=== PATIENT | female | born 1960 | race Caucasian/White ===

== ENCOUNTER → 2018-04-26 | Day surgery (SDC) | payer OTHER ==
[~2018-04-26] MED LIST: LIDOCAINE 1%/EPINEPHRINE INJ 20 ML VIAL ONE; LIDOCAINE 2% INJ (20 MG/ML) 20 ML MDV ONE
--- NOTE | 2018-04-27 17:03 | WOMENS IMAGING REPORT ---
EXAM DESCRIPTION: STEREO BREAST BX; RIGHT DIG DX MAMMO NO CHG COMPLETED DATE/TIME: 04/26/2018 12:01 pm; 04/26/2018 10:24 am REASON FOR STUDY: MICROCALCS (R92.0); RIGHT BREAST POST STEREO BX R92.0 MAMMOGRAPHIC MICROCALCIFICA TION FOUND ON DX IMAGING OF COMPARISON: None. TECHNIQUE: Vacuum-assisted stereotactic-guided biopsy of the lesion in the right breast. Serial prog ress stereotactic and single digital images acquired. PROCEDURE: The procedure was discussed with the patient, including possible complications such as bleeding, infection, nondiagnostic sample or possible findings such as atypical ductal hyperplasia wh ich would require additional surgery. Possible clip placement was explained. The patient agreed t o the procedure. The patient was placed prone on the stereotactic table. The lesion in the breast was localized ster eotactically. The skin of the breast was prepped in sterile fashion. Superficial and deep local an esthesia was provided. A small incision was made in the skin and the biopsy probe was advanced to t he target. Using the vacuum-assisted core biopsy device, multiple core specimens were obtained. Continuous low dose infusion of local anesthesia was used during the procedure. A specimen radiograph was obtained. The radiograph demonstrated calcifications of concern in the bio psy tissue. Using myyfdpuz-wu-rzojbwks technique a starch joel ultra core clip was deployed at the biopsy site. Mammographic image confirmed presence of the clip. The probe was then removed and hemostasis obt ained with manual compression. A compression bandage was applied. Postoperative instructions were explained to the patient. POST-PROCEDURE TWO VIEW DIGITAL MAMMOGRAM: An additional two view mammogram was recorded in the [facility] mammographic suite. Marker clip is present at the biopsy site. LIMITATIONS: None. 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 POST PROCEDURE MAMMOGRAMS FOR MARKER PLACEMENT: Yes IMPRESSION: SUCCESSFUL STEREOTACTIC-GUIDED BIOPSY OF THE LESION IN THE RIGHT BREAST. BIOPSY RESULT S ARE CONCORDANT WITH IMAGING FINDINGS. BI-RADS 6 Known biopsy-proven malignancy. Appropriate actio n should be taken. FOLLOW-UP: Patient has a follow-up with Dr Fernandez NOTIFICATION: These results were discussed directly with the patient, 1645 hours 04/27/2018. She unde rstands that this is a malignant diagnosis, which requires further treatment. BI-RADS 6 Known biopsy-proven malignancy. Appropriate action should be taken. COMMENT: Patient medication list reviewed: Yes- Quality ID# [id number]:Eligible professional attests to doc umenting in the medical record they obtained, updated, or reviewed the patient's current medications. TECHNICAL DOCUMENTATION: JOB ID: [id number] [employer]- All Rights Reserved Reading location - IP/workstation name: [email or web address]
== END ==
LOC: RAD 08:30 → EDSTATUS 09:00
PROVIDERS: ATTEND Surgery
DX: D05.11 Intraductal carcinoma in situ of right breast (principal); R92.0 Mammographic microcalcification found on diagnostic imaging of breast
CPT/HCPCS: 88305 ×2; 19081; J3490 ×2

== ENCOUNTER 2018-05-04 08:46 | Day surgery (SDC) | payer OTHER ==
[~2018-05-04 08:46] MED LIST changes: +ACETAMINOPHEN 1,000 MG/100 ML RTUPB IV ONE; +CEFAZOLIN 1 GM/D5W RTU 1 GM/50 ML RTUPB IV PRN; +DEXAMETHASONE SOD PHOSPHATE INJ 4 MG/1 ML VIAL ONE; +EPHEDRINE SULFATE INJ 50 MG/1 ML AMPULE ONE; +FENTANYL CITRATE INJ/PF 100 MCG/2 ML AMPUL ONE; +LACTATED RINGERS 1000 ML IV PRN; +LIDOCAINE 0.5% INJ-PF (5 MG/ML) 50 ML SDV SUBCUT PRN; +LIDOCAINE 1% INJ-PF (10 MG/ML) 30 ML SDV ONE; -LIDOCAINE 1%/EPINEPHRINE INJ 20 ML VIAL ONE; -LIDOCAINE 2% INJ (20 MG/ML) 20 ML MDV ONE; +LIDOCAINE 2% INJ-PF (20 MG/ML) 10 ML AMPUL ONE; +LIDOCAINE 4% TRANSPARENT DRESSING 5 GM KIT TP PRN; +MIDAZOLAM 2 MG/2 ML INJ ONE; +ONDANSETRON HCL INJ/PF 4 MG/2 ML SDV ONE; +PROPOFOL INJ 200 MG/20 ML VIAL IV ONE
[2018-05-04] MEDS ORDERED: SUCCINYLCHOLINE CHLORIDE INJ 200 MG/10 ML VIAL ONE (08:48)
[2018-05-04] MEDS ORDERED: KETOROLAC TROMETHAMINE 60 MG/2 ML SDV ONE (08:48)
[2018-05-04] MEDS ORDERED: GLYCOPYRROLATE 1 MG/5 ML SYRINGE ONE (08:48)
[2018-05-04] MEDS ORDERED: METOCLOPRAMIDE HCL INJ/PF 10 MG/2 ML SDV ONE (08:48)
[2018-05-04] MEDS ORDERED: CEFAZOLIN 1 GM/D5W RTU 1 GM/50 ML RTUPB IV ONE (09:03)
[2018-05-04] MEDS ORDERED: LIDOCAINE 4% TRANSPARENT DRESSING 5 GM KIT ONE (09:03)
[2018-05-04] MEDS ORDERED: METHYLENE BLUE 50 MG/10 ML AMPULE ONE (09:56)
[2018-05-04] MEDS ORDERED: BUPIVACAINE HCL 0.5%-EPI 1:200000 INJ/PF 30 ML VIAL ONE (09:57)
[2018-05-04] MEDS ORDERED: ONDANSETRON HCL INJ/PF 4 MG/2 ML SDV ONE (12:18)
--- NOTE | 2018-05-04 12:38 | RADIOLOGY REPORT (SQ) ---
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 The route of agent administration: Subcutaneous in the skin. TECHNIQUE: The skin of the right breast was prepped in sterile fashion. The radiopharmaceutical was administered in equally divided doses in the periareolar breast. LIMITATIONS: None. FINDINGS: Images demonstrate activity at the injection site. There is migration of activity towards the right axilla IMPRESSION: ADMINISTRATION OF RADIOPHARMACEUTICAL FOR SENTINEL LYMPH NODE EVALUATION. TECHNICAL DOCUMENTATION: JOB ID: [id number] [employer]- All Rights Reserved Reading location - IP/workstation name: [email or web address]
[2018-05-04] MEDS ORDERED: PROMETHAZINE HCL INJ 25 MG/1 ML VIAL IV PRN ×2 (12:57)
[2018-05-04] MEDS ORDERED: DIPHENHYDRAMINE HCL 50 MG/ML VIAL IV PRN (12:57)
[2018-05-04] MEDS ORDERED: OXYCODONE-ACETAMINOPHEN 5-325 MG TABLET PO PRN ×2 (12:57)
[2018-05-04] MEDS ORDERED: ONDANSETRON HCL INJ/PF 4 MG/2 ML SDV IV PRN (12:57)
[2018-05-04] MEDS ORDERED: MEPERIDINE HCL/PF INJ 25 MG/1 ML DISP.SYRIN IV PRN (12:57)
[2018-05-04] MEDS ORDERED: FENTANYL CITRATE INJ/PF 100 MCG/2 ML AMPUL IV PRN ×3 (12:57)
[2018-05-04] MEDS ORDERED: MORPHINE SULFATE 10 MG/ML INJ IV PRN (12:57)
--- NOTE | 2018-05-04 14:04 | Operative Report ---
Operative Report DATE OF SURGERY: 05/04/18 PREOPERATIVE DIAGNOSIS: breast cancer POSTOPERATIVE DIAGNOSIS: breast cancer OPERATION: rt lumpectomy and sentinel node bx SURGEON: JACQUELYN ALARCON 1ST ACOUSTIC ENGINEER: FLAKO CACERES ANESTHESIA: GA TISSUE REMOVED OR ALTERED: rt breast tissue and axillary node tissue COMPLICATIONS: none ESTIMATED BLOOD LOSS: 25cc INTRAOPERATIVE FINDINGS: see dictation PROCEDURE: see dictation
--- NOTE | 2018-05-04 14:07 | Discharge Summary ---
Discharge Summary (SDC) - Discharge Final Diagnosis: right breast cancer Date of Surgery: 05/04/18 Discharge Date: 05/04/18 Condition: Good Treatment or Instructions: keep dry for 24 hrs ok to shower or bath in 24 hrs dont soap up the steristrips they will fall off themselves f/u with me in 7-10 days try to keep the mitul wrap on as much as possible for next 2-3 days. Referrals: RACIEL EATON MD [Primary Care Provider] - Discharge Diet: As Tolerated Discharge Activity: Activity As Tolerated, Balance Activity w/Rest, No Lifting Over 10 Pounds, No Lifting/Push/Pulling Report the Following to Your Physician Immediately: Shortness of Breath, Nausea, Vomiting, Increase in Pain, Fever over 101 Degrees, Unusual Bleeding
[2018-05-04] MEDS: FENTANYL CITRATE INJ/PF 100 MCG/2 ML AMPUL ONE ×2 (14:19→14:30)
[2018-05-04] MEDS ORDERED: OXYCODONE-ACETAMINOPHEN 5-325 MG TABLET ONE (15:16)
[2018-05-04] MEDS ORDERED: PROMETHAZINE HCL INJ 25 MG/1 ML VIAL ONE (15:22)
--- NOTE | 2018-05-04 15:32 | OPERATIVE REPORT E ---
Operative Report NAME: JJ HALL : 1960 AGE: 57Y DATE OF SURGERY: 05/04/2018 ROOM: PREOPERATIVE DIAGNOSIS: RIGHT-SIDED BREAST CANCER. POSTOPERATIVE DIAGNOSIS: RIGHT-SIDED BREAST CANCER. OPERATIVE PROCEDURE: Needle localization lumpectomy right-sided breast cancer with sentinel node biopsy right axilla. SURGEON: JACQUELYN ALARCON M.D. BISQUE TILE BURNER: Debbie Agustin PA-C, for wound retraction and skin closure. PROCEDURE IN DETAIL: The patient was brought to the operating in an awake, alert, and stable condition. She had previously undergone lymphatic dye mapping injection as well as wire placement to microcalcifications in her right breast. This was done in radiology. She was then brought to the operating and placed on the operating room table in the supine positioned, induced under general anesthesia, intubated. The right breast and axilla were prepped and draped in the usual sterile manner for the procedure. After appropriate time out a curvilinear circumareolar incision was made on the right side of the nipple of the right breast. Dissection carried down through subcutaneous tissue with Bovie cautery. We had previously injected peritumoral around the previous biopsy site with methylene blue. We identified the methylene blue stained tissue and placed a Priscila clamp on that and dissected the tissue from the anterior chest wall as well as the medial aspect of the breast. There was some microcalcifications underneath the right nipple which were dissected all the way to the skin of the nipple, but the nipple remained. Once we completed freed up the mass, which is about 3-4 cm in diameter. We delivered the 2 wires that had been previously placed through the skin into the mass itself and then sent that for x-ray. The microcalcifications had proved to be within the specimen and they were completely contained in the specimen. Once this was done hemostasis was obtained with Bovie cautery. We turned attention to the right axilla. Using the Neoprobe we identified the increased uptake in the right axilla, made a curvilinear incision in the skin crease in the right axilla directly over the highest uptake on the Neoprobe. Incision was approximately 3 cm in diameter. We carried our dissection down through subcutaneous tissue with Bovie cautery. We got down deep into the axilla and again still continued our dissection because the Neoprobe suggested the sentinel node was deep to the clavipectoral fascia. This was opened with Bovie cautery and we identified the long thoracic nerve and then in the level 2 lymph node basin we identified the sentinel node. It did not take up dye, however, it had a very high scintigraphic count. We removed it and checked it with the Neoprobe and the count was approximately 17,707. It was only hot, it did not stain blue. In fact, the blue dye was placed on the medial aspect of the right breast and I suspect that none probably reached the axilla. Once we removed the hot lymph node we checked the axilla again for any further uptake and we could not identify anything strong enough that would deem necessary to remove and, therefore, we irrigated the wound with sterile water and closed the subcutaneous tissue with interrupted 3-0 Vicryl and then both incisions were closed with intracuticular 4-0 Biosyn. Steri-Strips and a sterile dressing were applied, which completed the procedure. Estimated blood loss is less than 25 mL. Sponge and needle counts were correct x2. The patient was then transferred to recovery in stable condition. DICTATING PHYSICIAN: JACQUELYN ALARCON M.D. [id number] PHY#: [id number] ID: [id number] JOB#: [id number] ACCT: [id number] cc:JACQUELYN ALARCON M.D. >
[2018-05-04 17:32] VITALS: BP 125/79
== END 2018-05-04 17:30 | disposition home or self-care (01) ==
LOC: OROUT 08:46
PROVIDERS: ATTEND Surgery
DX: D05.11 Intraductal carcinoma in situ of right breast (principal); N64.1 Fat necrosis of breast; Z80.3 Family history of malignant neoplasm of breast; I10 Essential (primary) hypertension; Z79.899 Other long term (current) drug therapy; Z01.818 Encounter for other preprocedural examination; Z86.010 Personal history of colon polyps; Z78.9 Other specified health status
CPT/HCPCS: 88342 ×2; 88341 ×2; 88305 ×2; 88307 ×2; 78195; 19281; 19282; 76098; 77065; 19301; 38500; A9520; J2250; J0690; J1100; J1885; J3010; J3490 ×4; J2765; J2550; J0330; J2405; J2704; J0131; Q9968; 1610

== ENCOUNTER 2018-06-29 05:21 | Day surgery (SDC) | payer OTHER ==
[~2018-06-29 05:21] MED LIST changes: -ACETAMINOPHEN 1,000 MG/100 ML RTUPB IV ONE; +CEFAZOLIN 1 GM/D5W RTU 1 GM/50 ML RTUPB IV ONE; -DEXAMETHASONE SOD PHOSPHATE INJ 4 MG/1 ML VIAL ONE; -EPHEDRINE SULFATE INJ 50 MG/1 ML AMPULE ONE; -FENTANYL CITRATE INJ/PF 100 MCG/2 ML AMPUL ONE; -LIDOCAINE 1% INJ-PF (10 MG/ML) 30 ML SDV ONE; -LIDOCAINE 2% INJ-PF (20 MG/ML) 10 ML AMPUL ONE; -LIDOCAINE 4% TRANSPARENT DRESSING 5 GM KIT TP PRN; -MIDAZOLAM 2 MG/2 ML INJ ONE; -ONDANSETRON HCL INJ/PF 4 MG/2 ML SDV ONE; -PROPOFOL INJ 200 MG/20 ML VIAL IV ONE
[2018-06-29] MEDS ORDERED: BUPIVACAINE HCL 0.25% /EPINEPHRINE INJ/PF 30 ML SDV ONE (06:31)
[2018-06-29] MEDS ORDERED: DEXAMETHASONE SOD PHOSPHATE INJ 4 MG/1 ML VIAL ONE (07:00)
[2018-06-29] MEDS ORDERED: MIDAZOLAM 2 MG/2 ML INJ ONE (07:00)
[2018-06-29] MEDS ORDERED: PROPOFOL INJ 200 MG/20 ML VIAL IV ONE (07:00)
[2018-06-29] MEDS ORDERED: ACETAMINOPHEN 1,000 MG/100 ML RTUPB IV ONE (07:00)
[2018-06-29] MEDS ORDERED: ONDANSETRON HCL INJ/PF 4 MG/2 ML SDV ONE (07:00)
[2018-06-29] MEDS ORDERED: FENTANYL CITRATE INJ/PF 100 MCG/2 ML AMPUL ONE (07:00)
[2018-06-29] MEDS ORDERED: EPHEDRINE SULFATE INJ 50 MG/1 ML AMPULE ONE (07:00)
[2018-06-29] MEDS ORDERED: PROMETHAZINE HCL INJ 25 MG/1 ML VIAL ONE (07:01)
[2018-06-29] MEDS ORDERED: MEPERIDINE HCL/PF INJ 25 MG/1 ML DISP.SYRIN IV PRN (07:25)
[2018-06-29] MEDS ORDERED: PROMETHAZINE HCL INJ 25 MG/1 ML VIAL IV PRN ×2 (07:25)
[2018-06-29] MEDS ORDERED: FENTANYL CITRATE INJ/PF 100 MCG/2 ML AMPUL IV PRN ×3 (07:25)
[2018-06-29] MEDS ORDERED: DIPHENHYDRAMINE HCL 50 MG/ML VIAL IV PRN (07:25)
[2018-06-29] MEDS ORDERED: MORPHINE SULFATE 10 MG/ML INJ IV PRN (07:25)
--- NOTE | 2018-06-29 08:33 | Operative Report ---
Nonrecallable Operative Report DATE OF SURGERY: 06/29/18 Operative Report: right breast lumpectomy PREOPERATIVE DIAGNOSIS: right breast cancer POSTOPERATIVE DIAGNOSIS: right breast cancer OPERATION: right breast lumpectomy SURGEON: JACQUELYN ALARCON 1ST INDUSTRIAL SALES ENGINEER: FLAKO CACERES ANESTHESIA: GA TISSUE REMOVED OR ALTERED: right breast tissue COMPLICATIONS: none ESTIMATED BLOOD LOSS: 25cc INTRAOPERATIVE FINDINGS: see dictation PROCEDURE: see dictation
[2018-06-29] MEDS ORDERED: OXYCODONE-ACETAMINOPHEN 5-325 MG TABLET PO PRN (08:35)
--- NOTE | 2018-06-29 08:35 | Discharge Summary ---
Discharge Summary (SDC) - Discharge Final Diagnosis: right breast cancer Date of Surgery: 06/29/18 Discharge Date: 06/29/18 Condition: Good Referrals: RACIEL EATON MD [Primary Care Provider] - Discharge Diet: As Tolerated Discharge Activity: Activity As Tolerated, Energy Conservation, No Lifting Over 10 Pounds Report the Following to Your Physician Immediately: Nausea, Vomiting, Increase in Pain, Unusual Bleeding, Swelling, Warmth - needs f/u with me in a week
--- NOTE | 2018-06-29 09:03 | OPERATIVE REPORT E ---
Operative Report NAME: JJ HALL : 1960 AGE: 57Y DATE OF SURGERY: 06/29/2018 ROOM: PREOPERATIVE DIAGNOSIS: Right breast cancer. POSTOPERATIVE DIAGNOSIS: Right breast cancer. OPERATION: Re-excision, right breast cancer. SURGEON: JACQUELYN ALARCON M.D. ASSISTANT TEACHING PROFESSOR: ESTUARDO Kim, who was present during the entire case for retraction and wound closure. ANESTHESIA: General. INDICATIONS FOR PROCEDURE: Please see preoperative history and physical. PROCEDURE: The patient was brought to the operating room in an awake, alert, and stable condition, placed on the operating table in supine position, induced under general anesthesia, and intubated. The right chest wall and breast were prepped and draped in the usual sterile manner for the procedure. The patient had a previous circumareolar incision on the medial aspect of her right nipple. This incision was reopened with a 15 blade and dissection was carried down through the subcutaneous tissue with a 15 blade. I then raised flaps laterally and medially and then continued our dissection around the previous lumpectomy site with the Bovie cautery. We continued our dissection medially down to the chest wall, laterally down to the chest wall, inferiorly down to the chest pectoralis muscle, and superiorly also down to the muscle. We then grasped the mass with a Priscila clamp and used that for traction and dissected the 6 cm x 4 cm mass of tissue up off the pectoralis muscle and removed it en toto which included the previous lumpectomy site. The posterior margin was then marked with a 2-0 silk suture for pathology as the previous margin was positive on the posterior aspect down on the chest wall. Once the mass was removed, hemostasis was obtained with Bovie cautery of the chest wall musculature, and then the subdermal tissue was reapproximated with interrupted 3-0 Vicryl and the skin was reapproximated with intracuticular 4-0 Biosyn. Steri-Strips completed the procedure. A pressure dressing was then applied. This completed the procedure. Estimated blood loss was 25 mL. Sponge and needle counts were correct x2. The patient was returned to recovery in stable condition. DICTATING PHYSICIAN: JACQUELYN ALARCON M.D. [id number] PHY#: [id number] ID: [id number] JOB#: [id number] ACCT: [id number] cc:JACQUELYN ALARCON M.D. >
[2018-06-29] MEDS ORDERED: OXYCODONE-ACETAMINOPHEN 5-325 MG TABLET ONE (09:22)
[2018-06-29] MEDS ORDERED: ATROPINE SULFATE INJ 1 MG/10 ML DISP.SYRIN IV ONE (09:49)
[2018-06-29] MEDS ORDERED: SUCCINYLCHOLINE CHLORIDE INJ 200 MG/10 ML VIAL ONE (10:21)
[2018-06-29] MEDS ORDERED: GLYCOPYRROLATE 1 MG/5 ML SYRINGE ONE (10:21)
[2018-06-29] MEDS ORDERED: PHENYLEPHRINE HCL INJ/PF 10 MG/1 ML SDV ONE (10:21)
[2018-06-29] MEDS ORDERED: KETOROLAC TROMETHAMINE 60 MG/2 ML SDV ONE (10:21)
[2018-06-29 10:46] VITALS: BP 121/73
== END 2018-06-29 10:10 | disposition home or self-care (01) ==
LOC: OROUT 05:21
PROVIDERS: ATTEND Surgery
DX: D05.11 Intraductal carcinoma in situ of right breast (principal); Z80.3 Family history of malignant neoplasm of breast; Z79.899 Other long term (current) drug therapy
CPT/HCPCS: 88307 ×2; 19301; J2250; J0461; J3490 ×3; J0690; J1100; J1885; J3010; J2370; J2550; J0330; J2405; J2704; J0131; 400